=== PATIENT | male | born 1970 | race Caucasian/White ===

== ENCOUNTER 2021-03-11 07:35 | Day surgery (SDC) | payer OTHER ==
[~2021-03-11] VITALS: Ht 172.7 cm; Wt 87.2 kg
== END 2021-03-11 09:20 | disposition home or self-care (01) ==
LOC: ORSCSDS 07:35
PROVIDERS: Surgery
PROC: 0DJD8ZZ Inspection of Lower Intestinal Tract, Via Natural or Artificial Opening Endoscopic (ICD-10-PCS; principal; 2021-03-11 08:45)
DX: Z12.11 Encounter for screening for malignant neoplasm of colon (principal); E78.5 Hyperlipidemia, unspecified
CPT/HCPCS: J0461; J2405; J2704; J7120

== ENCOUNTER 2022-04-25 18:45 | Inpatient (IN) | payer OTHER ==
[~2022-04-25] VITALS: Ht 172.7 cm; Wt 92.5 kg
[2022-04-25 19:45] LABS: BASOPHILS ABSOLUTE AUTO 0.11 K/mm3 (0.00-0.23); BASOPHILS PERCENT AUTO 1 % (0-2); EOSINOPHILS ABSOLUTE AUTO 0.16 K/mm3 (0.00-0.68); EOSINOPHILS PERCENT AUTO 1 % (0-6); Hematocrit 44.3 % (37.0-53.0); Hemoglobin 15.3 g/dL (13.5-17.5); IMMATURE GRAN ABSOLUTE AUTO 0.16 K/mm3 (0.00-0.10); IMMATURE GRAN PERCENT AUTO 1 % (0-1); LYMPHOCYTES ABSOLUTE AUTO 1.55 K/mm3 (0.84-5.20); LYMPHOCYTES PERCENT AUTO 12 % (21-46); MONOCYTES ABSOLUTE AUTO 0.62 K/mm3 (0.16-1.47); MONOCYTES PERCENT AUTO 5 % (4-13); Mean Corpuscular HGB 28.1 pg (26.0-34.0); Mean Corpuscular HGB Conc 34.5 g/dL (31.5-36.5); Mean Corpuscular Volume 81 fL (80-100); Mean Platelet Volume 9.9 fL (9.1-12.4); NEUTROPHILS ABSOLUTE AUTO 10.07 K/mm3 (1.96-9.15); NEUTROPHILS PERCENT AUTO 79 % (41-73); Platelet Count 622 K/mm3 (150-400); RDW Coefficient Variation 15.6 % (11.7-14.2); Red Blood Cell Count 5.45 M/mm3 (4.30-5.90); White Blood Cell Count 12.67 K/mm3 (4.00-11.30)
[2022-04-25 19:58] LABS: Albumin, Blood 4.2 g/dL (3.4-5.0); Albumin/Globulin Ratio 1.8 (0.8-1.8); Bilirubin, Total 0.5 mg/dL (0.1-1.0); Bun/Creatinine Ratio 21.5 (12.0-20.0); Calcium, Blood 8.9 mg/dL (8.5-10.1); Creatinine, Blood 1.07 mg/dL (0.60-1.20); Globulin, Blood 2.4 g/dL (2.2-4.0); Total Protein, Blood 6.6 g/dL (6.4-8.2)
[2022-04-26 01:03] LABS: Anti-Xa UFH, PHA Monitoring <0.10 IU/mL; International Normalized Ratio 1.05
[2022-04-26 04:27] LABS: BASOPHILS ABSOLUTE AUTO 0.13 K/mm3 (0.00-0.23); BASOPHILS PERCENT AUTO 1 % (0-2); EOSINOPHILS ABSOLUTE AUTO 0.25 K/mm3 (0.00-0.68); EOSINOPHILS PERCENT AUTO 2 % (0-6); Hemoglobin 14.5 g/dL (13.5-17.5); IMMATURE GRAN ABSOLUTE AUTO 0.17 K/mm3 (0.00-0.10); IMMATURE GRAN PERCENT AUTO 1 % (0-1); LYMPHOCYTES ABSOLUTE AUTO 3.14 K/mm3 (0.84-5.20); LYMPHOCYTES PERCENT AUTO 23 % (21-46); MONOCYTES ABSOLUTE AUTO 0.71 K/mm3 (0.16-1.47); MONOCYTES PERCENT AUTO 5 % (4-13); Mean Corpuscular HGB 27.8 pg (26.0-34.0); Mean Corpuscular Volume 84 fL (80-100); Mean Platelet Volume 10.1 fL (9.1-12.4); NEUTROPHILS ABSOLUTE AUTO 9.12 K/mm3 (1.96-9.15); NEUTROPHILS PERCENT AUTO 67 % (41-73); Platelet Count 539 K/mm3 (150-400); RDW Coefficient Variation 15.7 % (11.7-14.2); Red Blood Cell Count 5.22 M/mm3 (4.30-5.90); White Blood Cell Count 13.52 K/mm3 (4.00-11.30)
[2022-04-26 04:48] LABS: Albumin, Blood 3.8 g/dL (3.4-5.0); Albumin/Globulin Ratio 1.5 (0.8-1.8); Bilirubin, Total 0.5 mg/dL (0.1-1.0); Bun/Creatinine Ratio 22.1 (12.0-20.0); Calcium, Blood 8.5 mg/dL (8.5-10.1); Creatinine, Blood 1.13 mg/dL (0.60-1.20); Globulin, Blood 2.5 g/dL (2.2-4.0); Total Protein, Blood 6.3 g/dL (6.4-8.2)
[2022-04-26 09:35] LABS: Source, Urine Clean Catch
[2022-04-26 09:41] LABS: Bilirubin, Urine Neg (Neg); Blood, Urine Neg (Neg); Glucose Qualitative, Urine Neg (Neg); Ketones, Urine Neg (Neg); Leukocyte Esterase, Urine Neg (Neg); Nitrite, Urine Neg (Neg); Protein, Urine 1+ (Neg); Specific Gravity, Urine 1.025 (1.003-1.022); Urobilinogen, Urine NORM (Normal)
[2022-04-26 09:51] LABS: Appearance, Urine Clear (Clear); Color, Urine Yellow (P-Yellow)
[2022-04-26 10:05] LABS: SARS-Cov-2 (COVID-19) PCR, MMC NEGATIVE (NEGATIVE)
--- NOTE | 2022-04-26 18:24 | NUR ---
SHIFT SUMMARY; ASSUMED CARE AT 0700. A/A/OX4 DURING SHIFT. ANGIO TODAY WITH RIGHT RADIAL ACCESS. TR BAND BAND IN PLACE FOR 2 HOURS FOLLOWED BY DECREASED INFLATION THEN REMOVAL. NO HEMATOMA OR BLEEDING. CAP REFILL <3 [address] WITH STRONG RADIAL PULSE. HEPARIN DC'D TODAY PRIOR TO PROCEDURE BY [employer]. DENIES CP OR SOB, VSS, WILL CONTINUE TO MONITOR AND TREAT UNTIL CHANGE OF SHIFT.
--- NOTE | 2022-04-26 22:54 | NUR ---
PT IS A&OX4. DENIES ANY CHEST PAIN OR SOB. ACCESS SITE ON RIGHT WRIST IS C/D/I, SCAN AMOUNT OF OLD DRAINAGE NOTED UNDER DRESSING. NO INDURATION OR SWELLING NOTED AT SITE. PT INSTRUCTED TO KEEP WRIST IMMOBLE, NO PUSHING OR PULLING, STATE UNDERSTANDING. VSS. CALL LIGHT IN REACH.
--- NOTE | 2022-04-27 06:51 | NUR ---
NIGHT UNEVENTFUL. VSS. RADIAL ACCESS SITE SOFT WITHOUT BRUISING. NO INCREASED DRAINAGE. DENIES ANY CHEST PAIN OR SOB DURING SHIFT.
[2022-04-27] MEDS ORDERED: ASPI81CH PO (09:30)
[2022-04-27] MEDS ORDERED: LISI5 PO ×2 (09:32→09:34)
[2022-04-27] MEDS ORDERED: CLOP75 PO (09:32)
[2022-04-27] MEDS ORDERED: LIPITOR80 MG PO (09:32)
[2022-04-27] MEDS ORDERED: METO25ER PO (09:34)
[2022-04-27] MEDS ORDERED: NITR.4SL SL (09:35)
== END 2022-04-27 10:30 | disposition home or self-care (01) | DRG 247 ==
LOC: ER 18:45 → PCU 18:46
PROVIDERS: Internal Medicine Cardiovascular Disease; Pharmacist; Student in an Organized Health Care Education/Training Program; ADMIT Internal Medicine
PROC: 027034Z Dilation of Coronary Artery, One Artery with Drug-eluting Intraluminal Device, Percutaneous Approach (ICD-10-PCS; principal; 2022-04-26)
PROC: 4A023N7 Measurement of Cardiac Sampling and Pressure, Left Heart, Percutaneous Approach (ICD-10-PCS; 2022-04-26)
PROC: B2111ZZ Fluoroscopy of Multiple Coronary Arteries using Low Osmolar Contrast (ICD-10-PCS; 2022-04-26)
PROC: B24BZZ3 Ultrasonography of Heart with Aorta, Intravascular (ICD-10-PCS; 2022-04-26)
PROC: 4A023N7 Measurement of Cardiac Sampling and Pressure, Left Heart, Percutaneous Approach (ICD-10-PCS; 2022-04-26)
PROC: B2111ZZ Fluoroscopy of Multiple Coronary Arteries using Low Osmolar Contrast (ICD-10-PCS; 2022-04-26)
DX: I21.4 Non-ST elevation (NSTEMI) myocardial infarction (principal); I25.10 Atherosclerotic heart disease of native coronary artery without angina pectoris; Z20.822 Contact with and (suspected) exposure to COVID-19; E78.5 Hyperlipidemia, unspecified; D75.839 Thrombocytosis, unspecified; I10 Essential (primary) hypertension; D72.829 Elevated white blood cell count, unspecified; Z79.02 Long term (current) use of antithrombotics/antiplatelets; Z79.82 Long term (current) use of aspirin; Z79.899 Other long term (current) drug therapy
CPT/HCPCS: 36415; 71045; 80053; 82565; 84484; 85025; 85347; 85520; 85610; 85730; 86850; 86900; 86901; 92978; 93005; 93010; 93306; 93458; 96374; 99152; 99153; 99285-25; A9270; C1725; C1753; C1769; C1874; C1887; C1894; C9600; J1644; J2250; J2370; J2405; J3010; J7030; J7040; Q9967; U0004

== ENCOUNTER 2025-01-15 12:00 | Emergency (ER) | payer OTHER ==
[~2025-01-15] VITALS: Ht 172.7 cm; Wt 81.7 kg
[~2025-01-15 12:00] MED LIST: ASPI81CH PO; CLOP75 PO; LIPITOR80 MG PO; LISI5 PO; METO25ER PO; NITR.4SL SL
[2025-01-15] MEDS ORDERED: Ketorolac Tromethamine 15mg Vial IV ONE (12:10)
[2025-01-15] MEDS ORDERED: NS 1,000 ML IV SCH (12:10)
[2025-01-15 12:30] LABS: BASOPHILS ABSOLUTE AUTO 0.11 K/mm3 (0.00-0.23); BASOPHILS PERCENT AUTO 1 % (0-2); EOSINOPHILS ABSOLUTE AUTO 0.13 K/mm3 (0.00-0.68); EOSINOPHILS PERCENT AUTO 1 % (0-6); Hematocrit 41.9 % (37.0-53.0); Hemoglobin 14.1 g/dL (13.5-17.5); IMMATURE GRAN ABSOLUTE AUTO 0.13 K/mm3 (0.00-0.10); IMMATURE GRAN PERCENT AUTO 1 % (0-1); LYMPHOCYTES ABSOLUTE AUTO 1.18 K/mm3 (0.84-5.20); LYMPHOCYTES PERCENT AUTO 9 % (21-46); MONOCYTES ABSOLUTE AUTO 0.49 K/mm3 (0.16-1.47); MONOCYTES PERCENT AUTO 4 % (4-13); Mean Corpuscular HGB 28.6 pg (26.0-34.0); Mean Corpuscular HGB Conc 33.7 g/dL (31.5-36.5); Mean Corpuscular Volume 85 fL (80-100); Mean Platelet Volume 9.9 fL (9.1-12.4); NEUTROPHILS ABSOLUTE AUTO 11.19 K/mm3 (1.96-9.15); NEUTROPHILS PERCENT AUTO 85 % (41-73); Platelet Count 680 K/mm3 (150-400); RDW Coefficient Variation 16.9 % (11.7-14.2); RDW Standard Deviation 52.2 fL (35.1-46.3); Red Blood Cell Count 4.93 M/mm3 (4.30-5.90); White Blood Cell Count 13.23 K/mm3 (4.00-11.30)
[2025-01-15 12:54] LABS: Albumin, Blood 4.3 g/dL (3.4-5.0); Bilirubin, Total 0.9 mg/dL (0.1-1.0); Bun/Creatinine Ratio 14.8 (12.0-20.0); Calcium, Blood 8.4 mg/dL (8.5-10.1); Creatinine, Blood 1.22 mg/dL (0.60-1.20); Globulin, Blood 2.2 g/dL (2.2-4.0); Potassium, Blood 3.6 mmol/L (3.5-5.5); Total Protein, Blood 6.5 g/dL (6.4-8.2)
[2025-01-15 13:17] LABS: Source, Urine Clean Catch
[2025-01-15 13:21] LABS: Appearance, Urine Cloudy (Clear); Bilirubin, Urine Neg (Neg); Blood, Urine 5+ (Neg); Color, Urine Brown (P-Yellow); Glucose Qualitative, Urine Neg (Neg); Ketones, Urine 1+ (Neg); Leukocyte Esterase, Urine 1+ (Neg); Nitrite, Urine Neg (Neg); Protein, Urine 3+ (Neg); Urobilinogen, Urine NORM (Normal)
[2025-01-15 13:29] LABS: Mucus Light (0-Heavy); Squamous Epithelial Cells Rare /hpf (Few)
[2025-01-15 13:30] LABS: Bacteria Mod /hpf; White Blood Cells, Urine 50-100 /hpf (0-5)
[2025-01-15] MEDS ORDERED: CefTRIAXone Sodium 1,000 MG in NS 100 ML IV ONE (13:55)
[2025-01-15] MEDS ORDERED: Flomax0.4 MG PO (14:40)
[2025-01-15] MEDS ORDERED: Bactrim Ds Tab1 EACH PO (14:40)
[2025-01-15 14:50] VITALS: BP 138/61
== END 2025-01-15 14:51 | disposition home or self-care (01) ==
LOC: ER 12:00
PROVIDERS: Physician Assistant
DX: N13.2 Hydronephrosis with renal and ureteral calculous obstruction (principal)
CPT/HCPCS: 74177; 80053; 81001; 83690; 85025; 87086; 96361; 96374-59; 96375; 99284-25; J0696; J1885; J7030; Q9967